=== PATIENT | female | born 1995 | race African-American/Black ===

== ENCOUNTER 2017-03-07 14:13 | Emergency (ER) | payer OTHER ==
[~2017-03-07] VITALS: Ht 160 cm; Wt 91.2 kg
[2017-03-07 15:57] LABS: BASO % 0.5 % (0.0-1.0); EOS # 0.2 K/mm3 (0.0-0.50); EOS % 1.9 % (0.0-3.0); LARGE UNSTAINED CELL # 0.1 K/mm3 (0.0-0.4); LARGE UNSTAINED CELL % 1.3 % (0.0-4.0); LYMPH # 2.5 K/mm3 (1.5-6.5); LYMPH % 26.3 % (24.0-44.0); MEAN CORPUSCULAR HEMOGLOBIN 31.6 pg (27.0-33.0); MEAN CORPUSCULAR HGB CONC 33.9 g/dl (32.0-36.5); MEAN CORPUSCULAR VOLUME 93.4 fl (80.0-96.0); MONO # 0.5 K/mm3 (0.0-0.8); MONO % 5.8 % (0.0-5.0); NEUTROPHILS # 5.9 K/mm3 (1.8-7.7); NEUTROPHILS % 64.3 % (36.0-66.0); PLATELET COUNT, AUTOMATED 243 k/mm3 (150-450); RED CELL DISTRIBUTION WIDTH 12.4 % (11.5-14.5); WHITE BLOOD COUNT 9.2 K/mm3 (4.0-10.0)
[2017-03-07 16:59] VITALS: BP 126/70
--- NOTE | 2017-03-07 17:19 | REP ---
FIRST TRIMESTER ULTRASOUND: Real-time sonographic evaluation of the pelvis performed utilizing transabdominal and endovaginal technique. The uterus measures 8.1 x 4.8 x 6.3 cm. Endometrial thickness is 12 mm. There is no intrauterine gestational sac seen. Right ovary measures 3.0 x 2.6 x 3.2 cm and left ovary 4.0 x 2.9 x 4.1 cm. Complex cystic structure of the left ovary measures 2.9 x 2.7 x 2.3 cm. There is no evidence of ovarian torsion with blood flow seen in each ovary with duplex Doppler evaluation, RI right ovary 0.52 and left ovary 0.40. No free fluid is seen. There appears to be a right sided fibroid in the uterus measuring 1.7 x 1.6 x 2.4 cm. IMPRESSION: No intrauterine gestational sac. Complex cystic structure left ovary 2.9 cm in diameter could represent a complex corpus luteum. No significant free fluid. Differential diagnosis would include very early intrauterine , missed AB, or ectopic . Correlate with serum quantitative beta HCG values. Signed by Jairo Robledo MD 03/08/2017 04:04 P
== END 2017-03-07 17:00 | disposition home or self-care (01) ==
LOC: M ED 15:38
DX: O20.0 Threatened abortion (principal); O34.81 Maternal care for other abnormalities of pelvic organs, first trimester; N83.202 Unspecified ovarian cyst, left side; Z3A.01 Less than 8 weeks gestation of pregnancy

== ENCOUNTER 2017-03-22 13:16 | Emergency (ER) | payer OTHER ==
[~2017-03-22] VITALS: Ht 160 cm; Wt 72.6 kg
[2017-03-22] MEDS ORDERED: TYLE325C PO (13:30)
[2017-03-22] MEDS ORDERED: NS 1,000 ML IV ONE (14:00)
--- NOTE | 2017-03-22 15:05 | REP ---
Clinical: Dating and viability. Technique: Transabdominal and transvaginal first trimester obstetrical ultrasound with color Doppler evaluation. Comparison: 03/07/2017. Findings: A heterogeneous anteverted uterus measures 8.7 x 5.2 x 6.5 cm and again includes a right lateral fibroid measuring 1.9 cm maximal diameter unchanged from prior examination. Decidual reaction is identified with a gestational sac and yolk sac, but no definable pole. Mean sac diameter of 14.7 mm corresponds to 5-week 5 days gestational age. Bilateral maternal ovaries are normal in appearance and vascularity without torsion. 2.9 cm left corpus luteal cyst noted. No significant pelvic fluid or mass lesion identified. Impression: 1. In comparison to prior examination a gestational sac with yolk sac is now appreciated without definable pole. Mean sac diameter corresponds to 5 weeks 5 days gestational age and differential diagnosis includes blighted ovum, early , and much less likely ectopic . Correlation with serial HCG levels and repeat ultrasound if necessary. 2. Continued evidence for 1.9 cm right lateral intramural fibroid. 3. 2.9 cm left corpus luteal cyst. Signed by Alexei Luna MD 03/22/2017 02:56 P
[2017-03-22 15:29] LABS: BASO % 0.2 % (0.0-1.0); EOS # 0.1 K/mm3 (0.0-0.50); EOS % 1.1 % (0.0-3.0); LARGE UNSTAINED CELL # 0.1 K/mm3 (0.0-0.4); LARGE UNSTAINED CELL % 1.6 % (0.0-4.0); LYMPH # 1.9 K/mm3 (1.5-6.5); LYMPH % 21.5 % (24.0-44.0); MEAN CORPUSCULAR HEMOGLOBIN 31.9 pg (27.0-33.0); MEAN CORPUSCULAR HGB CONC 33.9 g/dl (32.0-36.5); MEAN CORPUSCULAR VOLUME 94.1 fl (80.0-96.0); MONO # 0.6 K/mm3 (0.0-0.8); MONO % 6.4 % (0.0-5.0); NEUTROPHILS # 6.3 K/mm3 (1.8-7.7); NEUTROPHILS % 69.3 % (36.0-66.0); PLATELET COUNT, AUTOMATED 212 k/mm3 (150-450); RED CELL DISTRIBUTION WIDTH 12.9 % (11.5-14.5)
[2017-03-22 15:37] LABS: ANION GAP 7 MEQ/L (8-16); BLOOD UREA NITROGEN 7 MG/DL (7-18); CALCIUM LEVEL 8.7 MG/DL (8.5-10.1); CARBON DIOXIDE LEVEL 25 MEQ/L (21-32); CHLORIDE LEVEL 106 MEQ/L (98-107); CREATININE FOR GFR 0.67 MG/DL (0.55-1.02); GLUCOSE, FASTING 85 MG/DL (70-105); HCG, SERUM QUANTITATIVE 15915 MIU/ML; POTASSIUM SERUM 4.3 MEQ/L (3.5-5.1); SODIUM LEVEL 138 MEQ/L (136-145)
[2017-03-22 16:15] VITALS: BP 120/60
--- NOTE | 2017-03-23 14:21 | ECGEPIP ---
Stationary ECG Study [facility] - ED Test Date: 2017-03-22 Pat Name: NA [facility] Department: Room: - Gender: F Roving Department End Finder: mayte : 1995 Requested By: Yolie Mars Order Number: [id number] Reading MD: Yolie Mars Measurements Intervals [place] Rate: 74 P: 59 [place]: 154 QRS: 23 QRSD: 86 T: 31 QT: 360 QTc: 402 Interpretive Statements SINUS RHYTHM NO PRIOR FOR COMPARISON Electronically Signed On 03-23-2017 14:21:30 EDT by Yolie Mars
== END 2017-03-22 16:28 | disposition home or self-care (01) ==
LOC: EDBD 13:16 → M ED 14:53
DX: O99.89 Other specified diseases and conditions complicating pregnancy, childbirth and the puerperium (principal); R55 Syncope and collapse; Z3A.01 Less than 8 weeks gestation of pregnancy

== ENCOUNTER 2017-05-10 11:27 | Emergency (ER) | payer OTHER ==
[~2017-05-10] VITALS: Ht 160 cm; Wt 93.5 kg
[~2017-05-10 11:27] MED LIST: TYLE325C PO
[2017-05-10] MEDS ORDERED: PRENTAB55 PO (11:37)
[2017-05-10 12:42] LABS: ADD MANUAL DIFFER YES; DIFF SLIDE NUMBER 227; MEAN CORPUSCULAR HEMOGLOBIN 31.6 pg (27.0-33.0); MEAN CORPUSCULAR HGB CONC 33.5 g/dl (32.0-36.5); MEAN CORPUSCULAR VOLUME 94.4 fl (80.0-96.0); PLATELET COUNT, AUTOMATED 197 k/mm3 (150-450); RED CELL DISTRIBUTION WIDTH 12.7 % (11.5-14.5); WHITE BLOOD COUNT 10.6 K/mm3 (4.0-10.0)
[2017-05-10 13:51] VITALS: BP 130/65
--- NOTE | 2017-05-10 15:12 | REP ---
FIRST TRIMESTER ULTRASOUND: Real-time sonographic evaluation of the gravid uterus performed utilizing transabdominal and endovaginal technique. There is a single living intrauterine gestation. The estimated gestational age is 13 weeks 4 days based on a crown-rump length of 74 mm. EDC 11/11/2017. Cervix is closed and measures 3.8 cm in length. heart rate 157 beats per minute. There is no subchorionic hemorrhage. No maternal adnexal region abnormality is seen. Posterior fibroid measures 1.9 x 2.3 x 2.3 cm. There appears to be partial placenta previa. Signed by Jairo Robledo MD 05/10/2017 04:27 P
== END 2017-05-10 13:52 | disposition home or self-care (01) ==
LOC: M ED 11:27
DX: O20.0 Threatened abortion (principal); Z3A.13 13 weeks gestation of pregnancy

== ENCOUNTER 2017-07-13 10:45 | Outpatient (CLI) | payer OTHER ==
[~2017-07-13] VITALS: Ht 165.1 cm; Wt 97.0 kg
[~2017-07-13 10:45] MED LIST changes: +PRENTAB55 PO
[2017-07-13 11:08] VITALS: BP 119/74
[2017-07-13 12:28] LABS: MEAN CORPUSCULAR HEMOGLOBIN 32.1 pg (27.0-33.0); MEAN CORPUSCULAR HGB CONC 34.1 g/dl (32.0-36.5); MEAN CORPUSCULAR VOLUME 93.9 fl (80.0-96.0); RED CELL DISTRIBUTION WIDTH 13.4 % (11.5-14.5); WHITE BLOOD COUNT 10.8 K/mm3 (4.0-10.0)
[2017-07-13 12:52] LABS: ALBUMIN 3.1 GM/DL (3.2-5.2); ALBUMIN/GLOBULIN RATIO 0.91 (1.00-1.93); ALKALINE PHOSPHATASE 46 U/L (45-117); ALT/SGPT 27 U/L (12-78); ANION GAP 7 MEQ/L (8-16); AST/SGOT 20 U/L (15-37); BILIRUBIN,TOTAL 0.1 MG/DL (0.2-1.0); BLOOD UREA NITROGEN 4 MG/DL (7-18); CARBON DIOXIDE LEVEL 25 MEQ/L (21-32); CHLORIDE LEVEL 110 MEQ/L (98-107); CREATININE FOR GFR 0.54 MG/DL (0.55-1.02); GLUCOSE, FASTING 91 MG/DL (70-105); POTASSIUM SERUM 4.3 MEQ/L (3.5-5.1); SODIUM LEVEL 142 MEQ/L (136-145); TOTAL PROTEIN 6.5 GM/DL (6.4-8.2)
[2017-07-13 13:26] VITALS: BP 128/72
== END 2017-07-13 13:30 | disposition home or self-care (01) ==
LOC: M LDO 10:45
PROVIDERS: ATTEND Obstetrics & Gynecology
DX: O99.89 Other specified diseases and conditions complicating pregnancy, childbirth and the puerperium (principal); R10.2 Pelvic and perineal pain; Z3A.22 22 weeks gestation of pregnancy

== ENCOUNTER 2017-07-21 16:26 | Outpatient (CLI) | payer OTHER ==
[2017-07-21 16:54] VITALS: BP 107/68
[2017-07-21 18:25] LABS: MEAN CORPUSCULAR HEMOGLOBIN 31.9 pg (27.0-33.0); MEAN CORPUSCULAR VOLUME 93.7 fl (80.0-96.0); RED CELL DISTRIBUTION WIDTH 13.4 % (11.5-14.5); WHITE BLOOD COUNT 9.9 K/mm3 (4.0-10.0)
--- NOTE | 2017-07-21 18:50 | REPUSA ---
HISTORY: ABD PAIN, HX OF FIBROIDS. LMP: 02/10/17 . Gestational age by LMP: 23 weeks 0 day. EFRAIN by LMP: 11/17/17. TECHNIQUE: Transabdominal obstetrical and pelvic ultrasound examination. FINDINGS: Examination demonstrates a single viable intrauterine fetus in variable position. Active f etal heart rate measured 152 bpm. Placenta is posterior and normal with no evidence of previa. Amni otic fluid is normal. Gestational age by ultrasound examination: 26 weeks 6 days with EFRAIN of 11/11/17 . Cervix measured 3.2 cm. No extrauterine pathologic mass or abnormal fluid collections were seen. Th ere is no detectable uterine fibroid identified on the limited examination at this time. IMPRESSION: 1. Viable single intrauterine fetus as discussed above with average gestational age of 2 6 weeks 6 days with EFRAIN of 11/11/17. 2. Previously described fibroid in the uterus could not be adequately visualized on today's ultrasou nd examination. No pathologic mass or abnormal fluid collection is seen in the pelvis. Clinical correlation and followup imaging may be warranted as clinically indicated. .
== END 2017-07-21 20:15 | disposition home or self-care (01) ==
LOC: M LDO 16:26
PROVIDERS: ATTEND Obstetrics & Gynecology
DX: O26.892 Other specified pregnancy related conditions, second trimester (principal); Z3A.23 23 weeks gestation of pregnancy; D25.9 Leiomyoma of uterus, unspecified; R10.30 Lower abdominal pain, unspecified; O34.592 Maternal care for other abnormalities of gravid uterus, second trimester